=== PATIENT | male | born 1970 | race Caucasian/White ===

== ENCOUNTER 2019-03-11 20:04 | Emergency (ER) | payer MEDICAID ==
[~2019-03-11] VITALS: Ht 177.8 cm; Wt 90.0 kg
[2019-03-11] MEDS ORDERED: HYDROcodone/acetaminophen 5mg/325mg tablet PO ONE (20:55)
[2019-03-11] MEDS ORDERED: CefTRIAXone 2gm/D5W 50ml 50 ML IV ONE (20:55)
[2019-03-11] MEDS ORDERED: iohexol 300mg/ml 100ml inj. ONE (20:57)
[2019-03-11 21:21] LABS: BASOPHILS % (AUTO) 0.4 % (0-1); EOSINOPHILS # (AUTO) 0.1 X10'3 (0-0.9); EOSINOPHILS % (AUTO) 1.1 % (0-6); HEMOGLOBIN 15.4 g/dl (14.0-17.9); LYMPHOCYTES # (AUTO) 1.1 X10'3 (1.1-4.8); MEAN CORPUSCULAR HEMOGLOBIN 32.5 PG (27.0-31.0); MEAN CORPUSCULAR HGB CONC 33.4 g/dL (33.0-36.5); MEAN CORPUSCULAR VOLUME 97.2 FL (78-98); MEAN PLATELET VOLUME 8.8 FL (7.4-10.4); MONOCYTES # (AUTO) 1.4 X10'3 (0-0.9); MONOCYTES % (AUTO) 11.7 % (2-12); NEUTROPHILS # (AUTO) 9.1 X10'3 (1.8-7.7); NEUTROPHILS % (AUTO) 77.8 % (42-75); PLATELET COUNT 283 X10'3 (140-440); RED BLOOD COUNT 4.74 X10'6 (4.70-6.10); RED CELL DISTRIBUTION WIDTH 13.7 % (11.5-14.5); WHITE BLOOD COUNT 11.7 X10'3 (4.5-11.0)
[2019-03-11 21:29] LABS: ALANINE AMINOTRANSFERASE 74 U/L (12-78); ALBUMIN/GLOBULIN RATIO 0.6 (1.1-1.5); ALKALINE PHOSPHATASE 108 IU/L (46-116); ANION GAP 5 (8-16); ASPARTATE AMINO TRANSFERASE 38 U/L (10-37); BILIRUBIN,TOTAL 0.4 MG/DL (0.1-1.0); BLOOD UREA NITROGEN 16 MG/DL (7-18); BUN/CREATININE RATIO 16.5 (5.4-32.0); CALCIUM 9.1 MG/DL (8.5-10.1); CHLORIDE 100 MMOL/L (99-107); CREATININE 0.97 MG/DL (0.60-1.10); GLUCOSE 127 MG/DL (70-104); SODIUM 138 MMOL/L (135-145); TOTAL CARBON DIOXIDE 32.6 MMOL/L (24-32); TOTAL PROTEIN 7.9 G/DL (6.4-8.2); eGFR 83 ML/MIN
[2019-03-11] MEDS ORDERED: HYDR-4383 PO (22:33)
[2019-03-11] MEDS ORDERED: DOXY100C43 PO (22:33)
[2019-03-11] MEDS ORDERED: CEPH250T PO (22:33)
[2019-03-11 22:47] VITALS: BP 123/89
== END 2019-03-11 22:48 | disposition home or self-care (01) ==
LOC: ER 20:05
DX: L02.416 Cutaneous abscess of left lower limb (principal); L03.116 Cellulitis of left lower limb; Z79.899 Other long term (current) drug therapy
CPT/HCPCS: 36415; 73701; 80053; 84145; 85025; 96365; 99284; J0696; Q9967

== ENCOUNTER 2023-11-15 13:39 | Emergency (ER) | payer MEDICAID ==
[~2023-11-15] VITALS: Ht 177.8 cm; Wt 90.8 kg
[2023-11-15 13:39] VITALS: BP 161/107; TEMP 97.8
[~2023-11-15 13:39] MED LIST: HYDR-4383 PO
[2023-11-15 14:06] VITALS: PULSE 80; RESP 18; O2SAT 94
[2023-11-15] MEDS: ipratropium/albuterol 3ml nebule NEB ONE ×2 (14:06→15:57)
[2023-11-15 14:14] VITALS: PULSE 101; RESP 18; O2SAT 98
[2023-11-15 14:37] LABS: BASOPHILS # (AUTO) 0.1 X10'3 (0-0.2); BASOPHILS % (AUTO) 0.5 % (0-1); EOSINOPHILS # (AUTO) 2.3 X10'3 (0-0.9); EOSINOPHILS % (AUTO) 22.9 % (0-6); HEMATOCRIT 50.1 % (42.0-52.0); HEMOGLOBIN 16.8 g/dl (14.0-17.9); LYMPHOCYTES % (AUTO) 19.6 % (21-51); MEAN CORPUSCULAR HEMOGLOBIN 32.2 PG (27.0-31.0); MEAN CORPUSCULAR HGB CONC 33.6 g/dL (33.0-36.5); MEAN CORPUSCULAR VOLUME 95.9 FL (78-98); MEAN PLATELET VOLUME 9.5 FL (7.4-10.4); MONOCYTES # (AUTO) 0.9 X10'3 (0-0.9); MONOCYTES % (AUTO) 9.2 % (2-12); NEUTROPHILS # (AUTO) 4.8 X10'3 (1.8-7.7); NEUTROPHILS % (AUTO) 47.8 % (42-75); PLATELET COUNT 230 X10'3 (140-440); RED BLOOD COUNT 5.23 X10'6 (4.70-6.10); RED CELL DISTRIBUTION WIDTH 14.4 % (11.5-14.5); WHITE BLOOD COUNT 10.1 X10'3 (4.5-11.0)
[2023-11-15 14:45] LABS: ALBUMIN 3.1 G/DL (3.4-5.0); ANION GAP 6 (8-16); BLOOD UREA NITROGEN 17 MG/DL (7-18); BUN/CREATININE RATIO 19.3 (10.0-20.0); CALCIUM 8.8 MG/DL (8.5-10.1); CHLORIDE 106 MMOL/L (99-107); CREATININE 0.88 MG/DL (0.60-1.10); GLUCOSE 126 MG/DL (70-104); POTASSIUM 3.9 MMOL/L (3.5-5.1); SODIUM 141 MMOL/L (135-145); TOTAL CARBON DIOXIDE 28.7 MMOL/L (24-32); eCRCL 100 ML/MIN; eGFR > 90 ML/MIN
[2023-11-15] MEDS: methylPREDNISolone sod succ 125mg/2ml vial IV ONE (14:54)
[2023-11-15 15:10] LABS: PLATELET ESTIMATE NORMAL; TOTAL CELLS COUNTED 100
[2023-11-15] MEDS ORDERED: AZIT-103 PO (15:18)
[2023-11-15] MEDS ORDERED: METH4TAB81 PO (15:18)
[2023-11-15] MEDS ORDERED: ADV50250 INH (15:20)
[2023-11-15] MEDS ORDERED: ALBU90AE3 INH (15:20)
[2023-11-15 15:58] VITALS: PULSE 96; RESP 20; O2SAT 93
[2023-11-15 16:07] VITALS: PULSE 99; RESP 18; O2SAT 99
== END 2023-11-15 16:23 | disposition home or self-care (01) ==
LOC: ER 13:39
DX: J44.1 Chronic obstructive pulmonary disease with (acute) exacerbation (principal); F17.210 Nicotine dependence, cigarettes, uncomplicated; Z79.899 Other long term (current) drug therapy
CPT/HCPCS: 36415; 71045; 80048; 85007; 85025; 94640; 96374; 99284; J2919; 94760

== ENCOUNTER 2024-06-24 18:04 | Emergency (ER) | payer MEDICAID ==
[~2024-06-24] VITALS: Ht 177.8 cm; Wt 72.2 kg
[~2024-06-24 18:04] MED LIST changes: +ALBU90AE3 INH; +METH4TAB81 PO
[2024-06-24 18:08] VITALS: BP 127/97; PULSE 110; RESP 22; TEMP 97.7; O2SAT 97
== END 2024-06-24 22:54 | disposition left against medical advice (07) ==
LOC: ER 18:05
DX: R06.02 Shortness of breath (principal); Z53.21 Procedure and treatment not carried out due to patient leaving prior to being seen by health care provider
CPT/HCPCS: 71045; 93005

== ENCOUNTER 2024-10-25 13:45 | Emergency (ER) | payer MEDICAID ==
[~2024-10-25] VITALS: Ht 180.3 cm; Wt 90.0 kg
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
[2024-10-25] MEDS: ondansetron/PF 4mg/2ml inj IV ONE (13:58)
--- NOTE | 2024-10-25 13:58 | ELECTROCARDIOGRAPH REPORT ---
[facility] Test Date: 2024-10-25 Test Time: 13:56:34 Pat Name: IRMA ADAM Department: [facility] Patient ID: [facility]-[id number] Room: Gender: M Senior Warehouse Clerk: : 1970 Requested By: LALI HARP Order Number: [id number] Reading MD: Measurements Intervals [place] Rate: 117 P: -8 TN: 194 QRS: 60 QRSD: 101 T: 38 QT: 305 QTc: 426 Interpretive Statements Sinus tachycardia Atrial premature complex Abnormal R-wave progression, early transition Please click the below link to view image of tracing.
[2024-10-25] MEDS: CefTRIAXone 2gm/D5W 50ml BAG 50 ML IV ONE (13:59)
[2024-10-25] MEDS: morphine 4 MG/ML inj SYRINge IV ONE (13:59)
[2024-10-25] MEDS: normal saline 1000ml 1,000 ML IV ONE (14:13)
--- NOTE | 2024-10-25 14:24 | RADIOLOGY REPORT ---
CHEST RADIOGRAPH Indication: SOB Technique: Single frontal view of the chest was obtained COMPARISON: DI CHEST,SINGLE VIEW on DOS: 06/24/24, DI CHEST,SINGLE VIEW on DOS: 11/15/23 FINDINGS: Lines and Tubes: None Lungs: Clear Pleura: No effusion. No pneumothorax. Cardiomediastinal contours: Unremarkable Bones: Unremarkable IMPRESSION: No acute disease.
[2024-10-25] MEDS: ringers solution, lacted 1,000 ML IV ONE (14:28)
[2024-10-25 14:37] LABS: BASOPHILS % (AUTO) 0.4 % (0-1); EOSINOPHILS % (AUTO) 0.1 % (0-6); HEMATOCRIT 46.4 % (42.0-52.0); HEMOGLOBIN 15.6 g/dl (14.0-17.9); LYMPHOCYTES % (AUTO) 9.5 % (21-51); MEAN CORPUSCULAR HEMOGLOBIN 31.7 PG (27.0-31.0); MEAN CORPUSCULAR HGB CONC 33.6 g/dL (33.0-36.5); MEAN CORPUSCULAR VOLUME 94.1 FL (78-98); MONOCYTES # (AUTO) 1.5 X10'3 (0-0.9); MONOCYTES % (AUTO) 14.1 % (2-12); NEUTROPHILS # (AUTO) 8.1 X10'3 (1.8-7.7); NEUTROPHILS % (AUTO) 75.9 % (42-75); PLATELET COUNT 165 X10'3 (140-440); RED BLOOD COUNT 4.93 X10'6 (4.70-6.10); RED CELL DISTRIBUTION WIDTH 14.4 % (11.5-14.5); WHITE BLOOD COUNT 10.6 X10'3 (4.5-11.0)
[2024-10-25 14:50] LABS: APTT 30 SECONDS (22-32); INR 1.2 INR; PROTHROMBIN TIME 11.7 SECONDS (9.0-12.0)
[2024-10-25 15:00] LABS: ALANINE AMINOTRANSFERASE 35 U/L (12-78); ALBUMIN 1.9 G/DL (3.4-5.0); ALBUMIN/GLOBULIN RATIO 0.5 (1.1-1.5); ALKALINE PHOSPHATASE 99 IU/L (46-116); ANION GAP 8 (8-16); ASPARTATE AMINO TRANSFERASE 23 U/L (10-37); BILIRUBIN,TOTAL 0.9 MG/DL (0.1-1.0); BLOOD UREA NITROGEN 12 MG/DL (7-18); BUN/CREATININE RATIO 10.7 (10.0-20.0); CALCIUM 8.2 MG/DL (8.5-10.1); CHLORIDE 100 MMOL/L (99-107); CREATININE 1.12 MG/DL (0.60-1.10); GLUCOSE 127 MG/DL (70-104); POTASSIUM 4.6 MMOL/L (3.5-5.1); SODIUM 133 MMOL/L (135-145); TOTAL CARBON DIOXIDE 25.2 MMOL/L (24-32); TOTAL PROTEIN 5.8 G/DL (6.4-8.2); eCRCL 80 ML/MIN; eGFR 68 ML/MIN
[2024-10-25] MEDS: ringers solution, lacted 1,000 ML IV SCH (15:05)
[2024-10-25 17:48] VITALS: BP 126/84; PULSE 101; RESP 20; O2SAT 99
== END 2024-10-25 17:52 | disposition short-term general hospital (02) ==
LOC: ER 13:46
DX: T25.222A Burn of second degree of left foot, initial encounter (principal); T31.20 Burns involving 20-29% of body surface with 0% to 9% third degree burns; Z79.899 Other long term (current) drug therapy
CPT/HCPCS: 36415; 71045; 80053; 83605; 84484; 85025; 85610; 85730; 86885; 86900; 86901; 87040; 93005; 96365; 96375; 99285; J0696; J2270; J2405; J7030; J7120; A6446; A6449

== ENCOUNTER 2024-11-16 14:47 | Emergency (ER) | payer MEDICAID ==
[~2024-11-16] VITALS: Ht 177.8 cm; Wt 81.5 kg
[2024-11-16 15:00] VITALS: BP 114/79; PULSE 113; RESP 20; TEMP 97.8; O2SAT 99
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
== END 2024-11-16 16:09 | disposition left against medical advice (07) ==
LOC: ER 14:47
DX: Z48.00 Encounter for change or removal of nonsurgical wound dressing (principal)
CPT/HCPCS: 99281